=== PATIENT | female | born 1950 | race Caucasian/White ===

== ENCOUNTER 2022-07-26 11:20 | Observation (INO) | payer OTHER ==
[2022-07-22 09:40] VITALS: BP 111/65
[2022-07-22 13:36] LABS: BASOPHILS % (AUTO) 0.9 % (0.0-5.0); EOSINOPHILS % (AUTO) 3.1 % (0.0-8.0); HEMATOCRIT 40.5 % (36-48); LYMPHOCYTES % (AUTO) 23.1 % (21.0-51.0); MEAN CORPUSCULAR HEMOGLOBIN 25.2 pg (27.0-33.0); MEAN CORPUSCULAR HGB CONC 30.9 g/dL (32.0-36.0); MEAN CORPUSCULAR VOLUME 81.7 fL (79-99); MONOCYTES % (AUTO) 7.6 % (3.0-13.0); NEUTROPHILS % (AUTO) 64.7 % (40.0-77.0); PLATELET COUNT (AUTO) 276 K/uL (130-400); RED BLOOD CELL COUNT(AUTO) 4.96 MIL/uL (4.00-5.50); RED CELL DISTRIBUTION WIDTH 15.1 % (11.0-15.5)
[2022-07-22 13:48] LABS: CREATININE 1.3 mg/dL (0.5-1.5); POTASSIUM 3.9 mmol/L (3.5-5.1)
[2022-07-22 13:50] LABS: INR 0.98 (0.85-1.15); PROTHROMBIN TIME 10.7 SEC (9.6-11.6)
[2022-07-22 13:52] LABS: PARTIAL THROMBOPLASTIN TIME 26.7 SEC (26.3-35.5)
[2022-07-22 13:54] LABS: B-TYPE NATRIURETIC PEPTIDE 20 pg/mL (0-100)
[2022-07-22 14:09] LABS: APPEARANCE,URINE CLOUDY (CLEAR); BILIRUBIN,URINE NEGATIVE (NEGATIVE); COLOR,URINE LIGHT-YELLOW (YELLOW); GLUCOSE, URINE (UA) NEGATIVE (NEGATIVE); KETONES,URINE NEGATIVE (NEGATIVE); LEUKOCYTE ESTERASE ,URINE NEGATIVE Leu/uL (NEGATIVE); NITRATE,URINE NEGATIVE (NEGATIVE); OCCULT BLOOD,URINE SMALL (NEGATIVE); PH,URINE 5.5 (5.0-8.0); PROTEIN,URINE 50 mg/dL (NEGATIVE); UROBILINOGEN,URINE 0.2 mg/dL (0.2-1.0)
[2022-07-22 14:21] LABS: BACTERIA,URINE RARE /HPF (None Seen); MUCUS,URINE RARE LPF (None Seen); RBC,URINE 0-1 /HPF (0-1); SQUAMOUS EPITHELIAL CELL,UR RARE /HPF (0-2)
[~2022-07-26] VITALS: Ht 152.4 cm; Wt 75.4 kg
[2022-07-26] VITALS (9 sets, daily range): BP systolic 116–139; BP diastolic 56–83
[~2022-07-26 11:20] MED LIST: AEC81 PO; CLON1TAB12 PO; CLOP75TA32 PO; FURO20TA4 PO; GLIP10TA9 PO; IPRA4AER IH; ISOS30TA92 PO; LEVO75 PO; LORA10TA7 PO; METF-890 PO; METO-408 PO; ROPI0.257 PO; ROSU40TA21 PO; ZOLP10TA2 PO; [UNRECOGNIZED DRUG - CODE] PO
[2022-07-26] MEDS ORDERED: BIVALIRUDIN 250 MG/VIAL IV ONE (11:56)
[2022-07-26] MEDS ORDERED: LIDOCAINE HCL 400MG/20ML VIAL ONE (11:57)
[2022-07-26] MEDS ORDERED: NITROGLYCERIN 50MG VIAL ONE (11:57)
[2022-07-26] MEDS ORDERED: FENTANYL CITRATE PF 50 MCG/1 ML 2ML VIAL ONE ×2 (11:57→13:22)
[2022-07-26] MEDS ORDERED: IOHEXOL-350 50ML VIAL IV ONE (11:57)
[2022-07-26] MEDS ORDERED: IOHEXOL 350 MG/ML 100ML INFUS..BTL IV ONE ×2 (11:57→12:22)
[2022-07-26] MEDS ORDERED: HEPARIN 10,000 UNIT/10ML (1,000 UNIT/ML) VIAL ONE (11:57)
[2022-07-26] MEDS ORDERED: MIDAZOLAM HCL 1 MG/ML 2ML VIAL ONE ×3 (11:57→13:22)
[2022-07-26] MEDS ORDERED: CLOPIDOGREL 300MG TAB ONE (13:45)
[2022-07-26] MEDS ORDERED: 0.9%NACL 1000ML 1,000 ML IV SCH (14:00)
[2022-07-26] MEDS ORDERED: DEXTROSE 50%-WATER 50 ML DISP.SYRIN IV PRN (14:00)
[2022-07-26] MEDS ORDERED: GLUCAGON 1MG KIT 1 MG ML IM PRN (14:00)
[2022-07-26] MEDS ORDERED: NITROGLYCERIN 0.4 MG SL TAB SL PRN (14:00)
[2022-07-26] MEDS: INSULIN HUMULIN R 100 UNIT/ML 3ML SQ SCH ×2 (16:05→20:21)
[2022-07-26] MEDS ORDERED: ZOLPIDEM TARTRATE 5 MG TAB PO PRN (18:00)
[2022-07-26] MEDS ORDERED: ONDANSETRON 4MG INJ IVP PRN (18:00)
[2022-07-26] MEDS ORDERED: ACETAMINOPHEN 325 MG TAB PO PRN ×2 (18:00→21:00)
[2022-07-26] MEDS: FAMOTIDINE 20MG TAB PO SCH (18:42)
[2022-07-26] MEDS ORDERED: CLONAZEPAM 1MG TAB PO SCH (21:00)
[2022-07-26] MEDS ORDERED: ZOLPIDEM TARTRATE 5 MG TAB PO SCH (21:00)
[2022-07-26] MEDS ORDERED: ROPINIROLE HCL 0.25 MG TABLET PO SCH (21:00)
[2022-07-27 04:00] VITALS: BP 140/69
[2022-07-27 04:30] LABS: HEMATOCRIT 36.4 % (36-48); MEAN CORPUSCULAR HEMOGLOBIN 25.1 pg (27.0-33.0); MEAN CORPUSCULAR HGB CONC 30.5 g/dL (32.0-36.0); MEAN CORPUSCULAR VOLUME 82.2 fL (79-99); RED BLOOD CELL COUNT(AUTO) 4.43 MIL/uL (4.00-5.50); RED CELL DISTRIBUTION WIDTH 15.2 % (11.0-15.5); WHITE BLOOD COUNT (AUTO) 7.7 K/uL (4.8-10.8)
[2022-07-27 04:37] LABS: CREATININE 1.2 mg/dL (0.5-1.5); POTASSIUM 3.6 mmol/L (3.5-5.1)
[2022-07-27] MEDS: INSULIN HUMULIN R 100 UNIT/ML 3ML SQ SCH (06:19)
[2022-07-27] MEDS ORDERED: LEVOTHYROXINE 75 MCG TABLET PO SCH (06:30)
[2022-07-27 08:27] VITALS: BP 159/76
[2022-07-27] MEDS: FAMOTIDINE 20MG TAB PO SCH (08:29)
[2022-07-27] MEDS ORDERED: FUROSEMIDE 20 MG TABLET PO SCH (09:00)
[2022-07-27] MEDS ORDERED: METOPROLOL SUCCINATE 25 MG TAB.SR.24H PO SCH (09:00)
[2022-07-27] MEDS ORDERED: ATORVASTATIN 40 MG TABLET PO SCH (09:00)
[2022-07-27] MEDS ORDERED: ASPIRIN 81 MG EC TAB PO SCH (09:00)
[2022-07-27] MEDS ORDERED: CLOPIDOGREL 75MG TAB PO SCH (09:00)
[2022-07-27] MEDS ORDERED: LORATADINE 10 MG TABLET PO SCH (09:00)
[2022-07-27] MEDS ORDERED: ISOS30TA92 PO (09:44)
== END 2022-07-27 10:16 | disposition home or self-care (01) ==
LOC: DAH 11:20 → DAHIP 11:21 → 2DH 14:31
PROVIDERS: ADMIT Internal Medicine; ATTEND Internal Medicine
DX: I25.110 Atherosclerotic heart disease of native coronary artery with unstable angina pectoris (principal); I12.9 Hypertensive chronic kidney disease with stage 1 through stage 4 chronic kidney disease, or unspecified chronic kidney disease; N18.30 Chronic kidney disease, stage 3 unspecified; E11.22 Type 2 diabetes mellitus with diabetic chronic kidney disease; E11.51 Type 2 diabetes mellitus with diabetic peripheral angiopathy without gangrene; E11.319 Type 2 diabetes mellitus with unspecified diabetic retinopathy without macular edema; E03.9 Hypothyroidism, unspecified; E78.5 Hyperlipidemia, unspecified; G25.81 Restless legs syndrome; I25.2 Old myocardial infarction; Z79.4 Long term (current) use of insulin; Z79.82 Long term (current) use of aspirin; Z85.828 Personal history of other malignant neoplasm of skin; Z90.711 Acquired absence of uterus with remaining cervical stump; Z95.1 Presence of aortocoronary bypass graft; Z79.899 Other long term (current) drug therapy; Z98.890 Other specified postprocedural states
CPT/HCPCS: 80048 ×2; 83880; 85025; 85610; 85730; 81001; 36415 ×2; 93005; 93455; 93567; 82948 ×4; 71045; 85027; C1769 ×2; C1887; C1894 ×2; C1760; C1874 ×2; C1725; Q9965 ×2; G0378 ×20; J3010 ×2; J3490 ×2; J2250 ×3; J1644; J0583; Q9967 ×3; A4215; A4223 ×3; A4222; A4221; A4663; A4216; A4606; C9604; 99156; 99157; C9600

== ENCOUNTER 2022-08-31 07:17 | Day surgery (SDC) | payer OTHER ==
[2022-08-29 09:38] LABS: BASOPHILS % (AUTO) 0.6 % (0.0-5.0); EOSINOPHILS % (AUTO) 3.8 % (0.0-8.0); HEMATOCRIT 39.6 % (36-48); LYMPHOCYTES % (AUTO) 31.4 % (21.0-51.0); MEAN CORPUSCULAR HEMOGLOBIN 25.1 pg (27.0-33.0); MEAN CORPUSCULAR HGB CONC 30.3 g/dL (32.0-36.0); MEAN CORPUSCULAR VOLUME 82.7 fL (79-99); MONOCYTES % (AUTO) 8.3 % (3.0-13.0); NEUTROPHILS % (AUTO) 55.7 % (40.0-77.0); PLATELET COUNT (AUTO) 271 K/uL (130-400); RED BLOOD CELL COUNT(AUTO) 4.79 MIL/uL (4.00-5.50); RED CELL DISTRIBUTION WIDTH 15.4 % (11.0-15.5); WHITE BLOOD COUNT (AUTO) 9.1 K/uL (4.8-10.8)
[2022-08-29 09:40] LABS: APPEARANCE,URINE CLOUDY (CLEAR); BILIRUBIN,URINE NEGATIVE (NEGATIVE); COLOR,URINE YELLOW (YELLOW); GLUCOSE, URINE (UA) NEGATIVE (NEGATIVE); KETONES,URINE NEGATIVE (NEGATIVE); LEUKOCYTE ESTERASE ,URINE NEGATIVE Leu/uL (NEGATIVE); NITRATE,URINE NEGATIVE (NEGATIVE); OCCULT BLOOD,URINE MODERATE (NEGATIVE); PROTEIN,URINE 200 mg/dL (NEGATIVE); UROBILINOGEN,URINE 0.2 mg/dL (0.2-1.0)
[2022-08-29 09:49] LABS: CREATININE 1.4 mg/dL (0.5-1.5); POTASSIUM 3.3 mmol/L (3.5-5.1)
[2022-08-29 09:54] LABS: INR 0.99 (0.85-1.15); PROTHROMBIN TIME 10.8 SEC (9.6-11.6)
[2022-08-29 09:56] LABS: PARTIAL THROMBOPLASTIN TIME 26.3 SEC (26.3-35.5)
[2022-08-29 09:58] LABS: BACTERIA,URINE RARE /HPF (None Seen); MUCUS,URINE FEW LPF (None Seen); SQUAMOUS EPITHELIAL CELL,UR FEW /HPF (0-2)
[2022-08-29 10:02] LABS: B-TYPE NATRIURETIC PEPTIDE 33 pg/mL (0-100)
[2022-08-30 10:44] VITALS: BP 146/73
[~2022-08-31] VITALS: Ht 152.4 cm; Wt 75.7 kg
[2022-08-31] VITALS (11 sets, daily range): BP systolic 111–150; BP diastolic 57–85
[~2022-08-31 07:17] MED LIST changes: +0.9% NACL 500ML IV.SOLN 500 ML IV SCH; -ISOS30TA92 PO; +ISOS60TA77 PO
[2022-08-31] MEDS ORDERED: 0.9%NACL 1000ML 1,000 ML IV ONE (07:47)
[2022-08-31] MEDS ORDERED: BIVALIRUDIN 250 MG/VIAL IV ONE (09:43)
[2022-08-31] MEDS ORDERED: NITROGLYCERIN 50MG VIAL ONE (09:43)
[2022-08-31] MEDS ORDERED: IOHEXOL-350 50ML VIAL IV ONE (09:43)
[2022-08-31] MEDS ORDERED: IOHEXOL 350 MG/ML 100ML INFUS..BTL IV ONE ×2 (09:43→11:02)
[2022-08-31] MEDS ORDERED: FENTANYL CITRATE PF 50 MCG/1 ML 2ML VIAL ONE (09:44)
[2022-08-31] MEDS ORDERED: MIDAZOLAM HCL 1 MG/ML 2ML VIAL ONE ×2 (09:44→11:07)
[2022-08-31] MEDS ORDERED: LIDOCAINE HCL 1% 20 ML VIAL ONE (10:23)
[2022-08-31] MEDS ORDERED: LABETALOL 20MG SYG IV ONE (11:36)
[2022-08-31] MEDS ORDERED: GLUCAGON 1MG KIT 1 MG ML IM PRN (12:00)
[2022-08-31] MEDS ORDERED: 0.9%NACL 1000ML 1,000 ML IV SCH (12:00)
[2022-08-31] MEDS ORDERED: DEXTROSE 50%-WATER 50 ML DISP.SYRIN IV PRN (12:00)
== END 2022-08-31 17:17 | disposition home or self-care (01) ==
LOC: DAH 07:17
PROVIDERS: ATTEND Internal Medicine Cardiovascular Disease
DX: I25.110 Atherosclerotic heart disease of native coronary artery with unstable angina pectoris (principal); I25.700 Atherosclerosis of coronary artery bypass graft(s), unspecified, with unstable angina pectoris; I10 Essential (primary) hypertension; E78.5 Hyperlipidemia, unspecified; E11.9 Type 2 diabetes mellitus without complications; E03.9 Hypothyroidism, unspecified; K21.9 Gastro-esophageal reflux disease without esophagitis; E66.9 Obesity, unspecified; G25.81 Restless legs syndrome; I25.2 Old myocardial infarction; Z79.01 Long term (current) use of anticoagulants; Z79.82 Long term (current) use of aspirin; Z79.84 Long term (current) use of oral hypoglycemic drugs; Z79.899 Other long term (current) drug therapy; Z79.890 Hormone replacement therapy; Z90.49 Acquired absence of other specified parts of digestive tract; Z90.89 Acquired absence of other organs; Z98.890 Other specified postprocedural states; Z82.49 Family history of ischemic heart disease and other diseases of the circulatory system; Z88.8 Allergy status to other drugs, medicaments and biological substances; Z88.0 Allergy status to penicillin; Z68.32 Body mass index [BMI] 32.0-32.9, adult
CPT/HCPCS: 80048; 83880; 85025; 85610; 85730; 81001; 36415; 82948 ×2; 93455; C9600; C1769; C1887; C1894 ×2; C1760; C1874 ×2; C1725; J3010; J7030; J2250 ×2; J1644; J3490; J0583; Q9967 ×2; A4215; A4222; A4221; A4663; A4216; A4606; Q9965 ×2; A4223 ×3; 99156; 99157

== ENCOUNTER → 2023-05-23 | Outpatient (CLI) | payer OTHER ==
[~2023-05-23] MED LIST changes: -0.9% NACL 500ML IV.SOLN 500 ML IV SCH; +ROPI0.2535 PO; -ROPI0.257 PO
== END | disposition home or self-care (01) ==
LOC: SHCH 13:12
PROVIDERS: ATTEND Internal Medicine Cardiovascular Disease
DX: I87.2 Venous insufficiency (chronic) (peripheral) (principal); I08.0 Rheumatic disorders of both mitral and aortic valves; I20.9 Angina pectoris, unspecified; I11.9 Hypertensive heart disease without heart failure; R06.09 Other forms of dyspnea; E78.5 Hyperlipidemia, unspecified; E11.9 Type 2 diabetes mellitus without complications; Z95.1 Presence of aortocoronary bypass graft
CPT/HCPCS: 93306; 93970